=== PATIENT | male | born 1950 ===

== ENCOUNTER 2017-11-25 12:32 | Day surgery (SDC) | payer OTHER, MEDICARE ==
[~2017-11-25] VITALS: Ht 182.9 cm; Wt 102.2 kg
[~2017-11-25 12:32] MED LIST: EZET10; FENO54; OXYACE5T
[2017-11-25] MEDS ORDERED: GABA300 PO (12:47)
[2017-11-25] MEDS ORDERED: TYLECOD3 (12:48)
[2017-11-25] MEDS ORDERED: ZESTORETIC 20-121 EA (12:48)
[2017-11-25] MEDS ORDERED: ATOR20 PO (12:49)
[2017-11-25] MEDS ORDERED: GEMF600 PO (12:49)
[2017-11-25] MEDS ORDERED: FOLI1 PO (12:49)
== END 2017-11-25 15:20 | disposition home or self-care (01) ==
LOC: ORSCSDS 12:32
DX: H02.831 Dermatochalasis of right upper eyelid (principal); H02.834 Dermatochalasis of left upper eyelid; H02.413 Mechanical ptosis of bilateral eyelids; I10 Essential (primary) hypertension; Z86.718 Personal history of other venous thrombosis and embolism; Z79.899 Other long term (current) drug therapy
CPT/HCPCS: J0171; J2250; J7040